=== PATIENT | female | born 1955 | race Caucasian/White ===

== ENCOUNTER → 2019-08-24 | Outpatient (CLI) | payer BC ==
[2019-08-24 15:42] VITALS: BP 123/86; PULSE 78; RESP 16; TEMP 97.3; BMI 51.0
--- NOTE | 2019-08-24 16:13 | FL ---
EXAMINATION: Single contrast esophagram DATE OF EXAM: 08/24/2019 CLINICAL INDICATION: 64-year-old female with dysphagia, vomiting for 7 months, history of lap band in to thousand 4 and revision to sleep in 2008. COMPARISON: None Total Fluoroscopy Time: 3 minutes 14 seconds Total images: 37 FINDINGS: The patient swallowed oral contrast without difficulty or delay. The distal half of the esophagus tracee ws corkscrew and tortuous appearance with extensive tertiary peristaltic waves. Double hairpin turns are present at the distal esophagus. There is moderate delay in clearance of contrast from the esopha karan and small amount of contrast remains distally due to the prominent tortuosity. Repeated episodes of intraesophageal reflux are demonstrated. No obvious fixed narrowing. Tiny hiatal hernia suggested with post surgical changes of sleeve gastrectomy. IMPRESSION: 1. Correlate for severe presbyesophagus versus esophageal spasm given corkscrew appearance and extens becki tertiary peristaltic waves. 2. Moderate delay in clearance of contrast from the esophagus. Small amount of contrast remains dista lly due to the double hairpin turn/significant tortuosity above the GE junction. 3. Repeated episodes of intraesophageal reflux. 4. Tiny hiatal hernia and post surgical changes of sleeve gastrectomy.
--- NOTE | 2019-08-25 12:45 | P.HPBAR ---
Bariatric H&P - History & Physicial H&P Date: 08/24/19 History & Physicial: Visit/CC: sleeve 2009 Patient initial contact: Initial weight: 131.542 kg Initial weight in pounds: 290.00 Height: 5 ft Initial BMI: 56.6 Last weight: Current weight: 118.388 kg Current weight in pounds: 261.00 Current BMI: 51.0 [place] body weight (based on NIH guidelines): 45.359 kg Excess body weight loss: 15.2% The patient is a 64 year-old F who presents for Bariatric Assessment. Patient presents today for sleeve gastrectomy follow-up. She's not been seen in several years. She's had some mild GERD. Past Medical History Past Medical History: GERD/Reflux, Hyperlipidemia, Osteoarthritis (OA) History of Any Multi-Drug Resistant Organisms: None Reported Past Surgical History: Bariatric Surgery, Cholecystectomy, Hysterectomy, Orthopedic Surgery Additional Past Surgical History / Comment(s): sleeve gastrectomy 2003 right shoulder srugery complete replacement x 2 laminectomy Past Anesthesia/Blood Transfusion Reactions: No Reported Reaction Past Psychological History: Depression Smoking Status: Former smoker Past Alcohol Use History: None Reported Past Drug Use History: None Reported Surgical - Exam Vital Signs Temp Pulse Resp BP 97.3 F L 78 16 123/86 08/24/19 15:35 08/24/19 15:35 08/24/19 15:35 08/24/19 15:35 - General well developed, well nourished, no distress - Abdomen Abdomen: soft, non tender Bariatric Assessment & Plan Plan: Status post sleeve yesterday. Patient BMI 51. Patient GERD is minimal will be observed. She'll follow-up in 4 weeks. Bariatric Checklist Checklist: Plan: Checklist: EGD: 1. Hiatal hernia: 2. H. Pylori: HgbA1c: Vitamin D: Smoking: Former smoker Primary care physician referral: Psychiatry clearance: Cardiology clearance: Sleep study: Diet journal: VTE risk score: VTE risk level: Rehab needs at discharge:
== END | disposition home or self-care (01) ==
LOC: BARWHC3 13:00
PROVIDERS: ATTEND Surgery
DX: Z48.815 Encounter for surgical aftercare following surgery on the digestive system (principal); K21.9 Gastro-esophageal reflux disease without esophagitis; K44.9 Diaphragmatic hernia without obstruction or gangrene; Z87.891 Personal history of nicotine dependence; Z98.84 Bariatric surgery status; Z90.49 Acquired absence of other specified parts of digestive tract; Z90.710 Acquired absence of both cervix and uterus
CPT/HCPCS: 74220; 99211

== ENCOUNTER 2019-08-31 07:57 | Day surgery (SDC) | payer BC ==
[2019-08-28 08:45] VITALS: BMI 57.6
[~2019-08-31 07:57] MED LIST: LACTATED RINGERS 1,000 ML IV SCH; LIDOCAINE 1% (10MG/ML) FOR IV START INTRADERMA PRN
[2019-08-31 08:47] VITALS: TEMP 97.7
--- NOTE | 2019-08-31 09:23 | P.GSHP ---
History of Present Illness H&P Date: 08/31/19 Chief Complaint: GERD This 64-year-old female presents today for EGD. She's had issues with GERD. Past Medical History Past Medical History: GERD/Reflux, Hyperlipidemia, Osteoarthritis (OA) Additional Past Medical History / Comment(s): Difficulty swallowing since November. History of Any Multi-Drug Resistant Organisms: None Reported Past Surgical History: Bariatric Surgery, Cholecystectomy, Hysterectomy, Orthopedic Surgery Additional Past Surgical History / Comment(s): sleeve gastrectomy 2004 right shoulder surgery complete replacement x 2 laminectomy. Past Anesthesia/Blood Transfusion Reactions: No Reported Reaction Smoking Status: Never smoker - Past Family History Mother Family Medical History: No Reported History Sister(s) Family Medical History: Cancer Additional Family Medical History / Comment(s): Sister Medications and Allergies Home Medications Medication Instructions Recorded Confirmed Type Aspirin 81 mg PO DAILY 08/25/19 08/28/19 History Atorvastatin [Lipitor] 10 mg PO DAILY 08/25/19 08/31/19 History Cyanocobalamin (Vitamin B-12) 1,000 mg PO DAILY 08/25/19 08/28/19 History [Vitamin B-12] DULoxetine HCL [Cymbalta] 30 mg PO TID 08/25/19 08/31/19 History Ergocalciferol (Vitamin D2) 1,000 mg PO DAILY 08/25/19 08/28/19 History [Vitamin D2] L.acidoph,Paracasei, B.lactis 1 tab PO DAILY 08/25/19 08/28/19 History [Probiotic] Meclizine [Antivert] 12.5 mg PO DIRECTED 08/25/19 08/31/19 History Mirabegron [Myrbetriq] 50 mg PO DAILY 08/25/19 08/31/19 History Omeprazole [PriLOSEC] 40 mg PO DAILY 08/25/19 08/31/19 History Allergies Allergy/AdvReac Type Severity Reaction Status Date / Time Tetanus Vaccines and Toxoid Allergy Swelling Verified 08/31/19 08:41 Surgical - Exam Vital Signs Temp Pulse Resp BP Pulse Ox 97.7 F 82 16 166/99 95 08/31/19 08:46 08/31/19 08:46 08/31/19 08:46 08/31/19 08:46 08/31/19 08:46 - General well developed, well nourished, no distress - Eyes PERRL - ENT normal pinna - Neck no masses - Respiratory normal expansion - Cardiovascular Rhythm: regular - Abdomen Abdomen: soft, non tender Assessment and Plan Assessment: GERD. We'll perform EGD.
[2019-08-31] MEDS ORDERED: LIDOCAINE 1% INJ 10MG/ML (20 ML MDV) ONE (09:25)
[2019-08-31] MEDS ORDERED: PROPOFOL 10 MG/ML 20 ML VIAL IV ONE (09:25)
--- NOTE | 2019-08-31 09:38 | P.OP ---
Date of Procedure: 08/31/19 Preoperative Diagnosis: GERD Postoperative Diagnosis: Antral gastritis Presbyesophagus Procedure(s) Performed: EGD Anesthesia: MAC Surgeon: Villa Duenas Pathology: other (Antrum) Condition: stable Disposition: PACU Description of Procedure: The patient's placed on the endoscopy table lateral position. She received IV sedation. The gastroscope placed oropharynx and passed in the esophagus and stomach. Scope then placed through the pylorus. First and second portion of duodenum appeared normal. Scope was then brought back the antrum this. Mildly inflamed. A biopsies performed. Scope was then brought back to the stomach. Patient previous gastric sleeve. There is no evidence of obstruction of the sleeve. The GE junction was at 40 cms. The distal esophagus quite tortuous. It was thought this is due to achalasia or presbyesophagus. There is no obstruction of the esophagus. The proximal esophagus appeared normal. Scope withdrawn for patient.
[2019-08-31 10:10] VITALS: BP 149/88; PULSE 92; RESP 16
== END 2019-08-31 10:17 | disposition home or self-care (01) ==
LOC: ORWHC2ENDO 07:57
PROVIDERS: ATTEND Surgery
DX: K29.70 Gastritis, unspecified, without bleeding (principal); K22.8 Other specified diseases of esophagus; K21.9 Gastro-esophageal reflux disease without esophagitis; E78.5 Hyperlipidemia, unspecified; G47.33 Obstructive sleep apnea (adult) (pediatric); E66.01 Morbid (severe) obesity due to excess calories; M19.90 Unspecified osteoarthritis, unspecified site; Z88.7 Allergy status to serum and vaccine; Z79.82 Long term (current) use of aspirin; Z79.899 Other long term (current) drug therapy; Z98.84 Bariatric surgery status; Z90.49 Acquired absence of other specified parts of digestive tract; Z90.710 Acquired absence of both cervix and uterus; Z98.890 Other specified postprocedural states; Z68.43 Body mass index [BMI] 50.0-59.9, adult; Z80.9 Family history of malignant neoplasm, unspecified
CPT/HCPCS: 43239; J2001; J2704; 88305